=== PATIENT | female | born 1965 | race Caucasian/White ===

== ENCOUNTER 2016-10-17 22:51 | Emergency (ER) | payer SELFPAY ==
--- NOTE | 2016-10-17 23:11 | Emergency Department Record ---
History of Present Illness - General Chief complaint: Female Urogenital Problem Stated complaint: I THINK I HAVE A BLADDER INFECTION Time Seen by Provider: 10/17/16 23:02 Source: Patient Mode of Arrival: Ambulatory Limitations: No limitations - History of Present Illness Initial comments: 51 yo female presents with suprapubic discomfort for 2 days. She has an urgency to urinate more frequently. She reports similar symptoms in the past that have been UTI. No fever. No vomiting. No significant back or flank pain. No history of renal stones or renal surgery. Her pain is suprapubic. She did have a few loose stools yesterday. She has a history of diverticulosis on colonoscopy MD Complaint: Other (Urgency) Onset/Timin -: Days(s) Location: Suprapubic Radiation: Non-radiating Severity: Mild Severity scale (1-10): 6 Quality: Dull Consistency: Constant Improves with: None Worsens with: Movement, Other Associated Symptoms: Denies other symptoms - Related Data Home Medications Medication Instructions Recorded Confirmed Last Taken Levothyroxine Sodium 75 mcg PO DAILY 01/12/14 10/17/16 01/12/14 Hydrocodone/Acetaminophen [[place] 1 tab PO Q6H PRN 10/17/16 10/17/16 10/17/16 5mg/325mg] Previous Rx's Medication Instructions Recorded Ciprofloxacin HCl [Cipro] 500 mg PO Q12HR #14 tablet 10/18/16 Metronidazole [Flagyl] 500 mg PO BID #14 tablet 10/18/16 Allergies Allergy/AdvReac Type Severity Reaction Status Date / Time codeine [CODEINE] Allergy Unknown hyperventil Verified 01/12/14 21:40 ation meperidine [MEPERIDINE] Allergy Unknown hyperventil Verified 01/12/14 21:40 ation Penicillins [PENICILLINS] Allergy Unknown paralysis Verified 01/12/14 21:40 prochlorperazine edisylate Allergy Unknown paralysis Verified 01/12/14 21:40 [From COMPAZINE] prochlorperazine maleate Allergy Unknown paralysis Verified 01/12/14 21:40 [From COMPAZINE] tramadol [From Ultram] Allergy NAUSEA Verified 10/17/16 22:59 Travel Screening - Travel/Exposure Within Last 30 Days Have you traveled within the last 30 days?: No - Travel/Exposure Within Last Year Have you traveled outside the [place] in the last year?: No - Additonal Travel Details Have you been exposed to anyone with a communicable illness?: No - Travel Symptoms Symptom Screening: None Review of Systems Constitutional: Denies: Chills, Fever, Malaise, Weakness Eyes: Denies: Eye discharge ENT: Denies: Congestion, Throat pain Respiratory: Denies: Cough, Dyspnea, Hemoptysis Cardiovascular: Denies: Chest pain, Palpitations, Syncope Endocrine: Denies: Fatigue Gastrointestinal: Reports: As per HPI, Abdominal pain. Denies: Diarrhea, Nausea , Vomiting Genitourinary: Reports: Dysuria, Frequency, Urgency. Denies: Discharge Musculoskeletal: Denies: Arthralgia, Back pain, Neck pain Skin: Denies: Bruising, Change in color Neurological: Denies: Headache Psychiatric: Denies: Anxiety Hematological/Lymphatic: Denies: Blood Clots, Easy bleeding, Easy bruising, Swollen glands Past Medical History - SOCIAL HISTORY Smoking Status: Never smoker Alcohol Use: Rare Drug Use: None - RESPIRATORY Hx Respiratory Disorders: No - CARDIOVASCULAR Hx Cardio Disorders: No - NEURO Hx Neuro Disorders: No - GI Hx GI Disorders: No Hx Abdominal Pain: Yes (recent colonoscopy) - Hx Genitourinary Disorders: No - ENDOCRINE Hx Endocrine Disorders: Yes Hx Thyroid Disease: Yes - MUSCULOSKELETAL Hx Musculoskeletal Disorders: Yes Comment:: DJD - PSYCH Hx Psych Problems: No - HEMATOLOGY/ONCOLOGY Hx Hematology/Oncology Disorders: No Family Medical History Any Significant Family History?: No Hx Cancer: Brother/Sister, Grandparents Physical Exam - General General Appearance: Alert, Oriented x3, Cooperative, No acute distress Limitations: No limitations - Head Head exam: Normal inspection - Eye Eye exam: Normal appearance - ENT ENT exam: Normal exam Ear exam: Normal external inspection Nasal Exam: Normal inspection Mouth exam: Normal external inspection - Neck Neck exam: Normal inspection, Full ROM. negative: Tenderness - Respiratory Respiratory exam: Normal lung sounds bilaterally. negative: Respiratory distress - Cardiovascular Cardiovascular Exam: Regular rate, Normal rhythm, Normal heart sounds - GI/Abdominal GI/Abdominal exam: Soft, Tenderness (mild in the suprapubic area) - Rectal Rectal exam: Deferred - exam: Deferred - Extremities Extremities exam: Normal inspection - Back Back exam: Reports: Normal inspection, Full ROM. Denies: CVA tenderness (R), CVA tenderness (L), Muscle spasm, Rash noted, Tenderness - Neurological Neurological exam: Alert, Normal gait, Oriented X3 - Psychiatric Psychiatric exam: Normal affect, Normal mood. negative: Agitated, Anxious - Skin Skin exam: Dry, Intact, Normal color, Warm Course Vital Signs 10/17/16 23:00 Temperature 99.4 F Pulse Rate 93 H Respiratory 16 Rate Blood Pressure 119/77 Pulse Ox 97 - Reevaluation(s) Reevaluation #1: 10/17/16 23:42 The UA is not conclusive for UTI I recommend labs and CT Reevaluation #2: The CT scan from [facility] was reviewed. The findings are suggestive of diverticulitis. No obstruction, No Free air. Slight stranding. Pulmonary nodule right CVA area. The patient was informed of the results including the nodule to follow up with her PCP for the time appropriate recheck of the nodule 10/18/16 00:53 Because the WBC is 19 I will recommend a recheck in the ED in the next 24 hours and sooner if worse. The patient clinically looks very well. She is eating and drinking. No vomiting or uncontrolled pain. She is a good outpatient candidate 10/18/16 00:58 Medical Decision Making - Lab Data Result diagrams: 10/17/16 23:50 10/17/16 23:50 Disposition Disposition: Discharge Clinical Impression: Diverticulitis Qualifiers: Diverticulitis site: large intestine Diverticulitis bleeding: without bleeding Diverticulitis complication: unspecified complication status Qualified Code(s): K57.32 - Diverticulitis of large intestine without perforation or abscess without bleeding Disposition: Home, Self-Care Condition: (1) Good Instructions: Diverticulitis (ED), Diverticulitis Diet (ED) Additional Instructions: Call your doctor tomorrow for follow up of the ER visit. You will need to review the CT and discuss a recheck of your right sided pulmonary nodule. Return immediately if you have fever, uncontrolled pain or any new conerns Take the antibiotics as directed until gone Prescriptions: Ciprofloxacin HCl [Cipro] 500 mg PO Q12HR #14 tablet Metronidazole [Flagyl] 500 mg PO BID #14 tablet Forms: Patient Portal Access Time of Disposition: 00:57
[2016-10-17 23:19] LABS: URINE APPEARANCE CLEAR; URINE BILIRUBIN NEGATIVE (NEGATIVE); URINE BLOOD TRACE-I (NEGATIVE); URINE COLOR YELLOW; URINE GLUCOSE (UA) NEGATIVE (NEGATIVE); URINE KETONE 40 mg/dL (NEGATIVE); URINE LEUKOCYTE ESTERASE NEGATIVE (NEGATIVE); URINE NITRITE NEGATIVE (NEGATIVE); URINE PROTEIN NEGATIVE (NEGATIVE); URINE UROBILINOGEN 0.2 E.U./dL (0.20 - 1.00)
[2016-10-17 23:34] LABS: URINE MUCUS HEAVY
[2016-10-18 00:14] LABS: ANION GAP 8.6 (7-16); BLOOD UREA NITROGEN 14 mg/dL (7-17); CARBON DIOXIDE 25.4 mmol/L (22-30); EST GLOMERULAR FILTRATION RATE > 60 ml/min; GLUCOSE,RANDOM 113 mg/dL (70-110)
[2016-10-18 00:33] LABS: BASO % 0.1 % (0-6); HEMATOCRIT 47.4 % (35.0-47.0); HEMOGLOBIN 15.6 gm/dl (11.6-16.0); LYMPH % 4.4 % (16-45); MEAN CELL VOLUME 87.6 fl (81-97); MEAN CORPUSCULAR HEMOGLOBIN 28.8 pg (27-33); MEAN CORPUSCULAR HGB CONC 32.9 g/dl (32-36); MEAN PLATELET VOLUME 10.6 fl (7.4-10.4); MONO % 5.2 % (0-9); PLATELET COUNT 224 K/uL (130-400); RED BLOOD COUNT 5.41 M/uL (3.80-5.40); RED CELL DISTRIBUTION WIDTH 13.4 % (11.5-14.5); WHITE BLOOD COUNT W/O DIFF 19.4 K/uL (4.2-12.2)
[2016-10-18] MEDS ORDERED: CIPROFLOXACIN HCL 500 MG TABLET PO ONE (00:55)
[2016-10-18] MEDS ORDERED: METRONIDAZOLE 250 MG TABLET PO ONE (00:55)
--- NOTE | 2016-10-19 13:38 | CT SCAN REPORT ---
EXAM: CT SCAN OF THE ABDOMEN AND PELVIS WITH CONTRAST HISTORY: ABDOMINAL PAIN AND PELVIC PAIN. PREVIOUS HISTORY OF DIVERTICULOSIS. FEVER AND WEAKNESS. TECHNIQUE: Standard CT imaging of the abdomen and pelvis was performed with intravenous contrast. 100 ml of Omnipaque 300 were administered. Comparison: None. FINDINGS: A 5 mm noncalcified nodule is present at the right lung base laterally. The lung bases are otherwise clear. A tiny hiatal hernia is present. There are scattered tiny hypodensities within the liver which are too small to characterize, but suggestive of cysts. The gallbladder, biliary tree, pancreas, and adrenal glands are normal. The spleen is upper normal in size and contains calcified granulomas. A 5 mm nonobstructing stone is present within the mid to upper portion of the left kidney. There is no obstructing calculus or hydronephrosis. Tiny hypodensities within both kidneys are too small to characterize, but suggestive of cysts. The aorta is normal in caliber. There is no retroperitoneal lymphadenopathy. There are a few scattered diverticula within the sigmoid colon. There is abnormal wall thickening of the sigmoid colon with mild adjacent fat stranding. The appearance favors infectious or inflammatory colitis as opposed to acute diverticulitis. The remaining large and small bowel loops are normal. The appendix is normal. There is no pneumoperitoneum or ascites. The uterus and adnexa appear within normal limits. The urinary bladder is normal. There are no acute osseous abnormalities. IMPRESSION: 1. ABNORMAL WALL THICKENING OF THE SIGMOID COLON SUGGESTING INFECTIOUS OR INFLAMMATORY COLITIS. A FEW DIVERTICULA ARE PRESENT WITH NO CONVINCING EVIDENCE OF ACUTE DIVERTICULITIS. 2. 5 MM NONOBSTRUCTING STONE WITHIN THE LEFT KIDNEY. 3. TINY HYPODENSITIES WITHIN THE LIVER AND KIDNEYS WHICH ARE TOO SMALL TO CHARACTERIZE, BUT SUGGESTIVE OF CYSTS. 4. SMALL HIATAL HERNIA. 5. 5 MM NONCALCIFIED NODULE WITHIN THE RIGHT LUNG BASE LATERALLY. A FOLLOW-UP NONEMERGENT CT SCAN OF THE CHEST IS RECOMMENDED FOR BASELINE ASSESSMENT OF BOTH LUNGS. JOB NUMBER: [id number] [facility]
== END 2016-10-18 01:09 | disposition home or self-care (01) ==
LOC: ER 22:51
DX: K57.32 Diverticulitis of large intestine without perforation or abscess without bleeding (principal); R35.0 Frequency of micturition; R10.2 Pelvic and perineal pain
CPT/HCPCS: 99283; 99284; 80048; 81001; 81025; 85027; 74177; Q9967

== ENCOUNTER 2016-10-19 13:39 | Emergency (ER) | payer SELFPAY ==
--- NOTE | 2016-10-19 13:49 | Emergency Department Record ---
History of Present Illness - General Chief Complaint: Abdominal Pain Stated Complaint: ABD PAIN Time Seen by Provider: 10/19/16 13:48 Source: Patient Mode of Arrival: Ambulatory Limitations: No limitations - History of Present Illness Initial Comments: The patient is here due to worsening of her abdomen pain for the last 2 days. She originally was in the ER 2 days ago and due to the AP and was diagnosed with colitis and possibly early Diverticulitis and was discharged on Cipro and Flagyl. She did have an elevated WBC and a CT that demonstrated colon wall thickening with minimal stranding. Now today she is feeling more pain and is bloated. She did see her PCP today who sent her over to the ER for treatment. The patient has had nausea but no vomiting, diarrhea or fever. MD Complaint: Abdominal pain Onset/Timin -: Days(s) Location: LLQ, RLQ Radiation: R flank Severity: Moderate Quality: Aching Consistency: Constant Improves With: Nothing Worsens With: Nothing Associated Symptoms: Diarrhea, Nausea - Related Data Patient : No Home Medications Medication Instructions Recorded Confirmed Last Taken Levothyroxine Sodium 75 mcg PO DAILY 01/12/14 10/19/16 01/12/14 Hydrocodone/Acetaminophen [[place] 1 tab PO Q6H PRN 10/17/16 10/19/16 10/17/16 5mg/325mg] Previous Rx's Medication Instructions Recorded Ciprofloxacin HCl [Cipro] 500 mg PO Q12HR #14 tablet 10/18/16 Metronidazole [Flagyl] 500 mg PO BID #14 tablet 10/18/16 Allergies Allergy/AdvReac Type Severity Reaction Status Date / Time codeine [CODEINE] Allergy Unknown hyperventil Verified 10/19/16 13:43 ation meperidine [MEPERIDINE] Allergy Unknown hyperventil Verified 10/19/16 13:43 ation Penicillins [PENICILLINS] Allergy Unknown paralysis Verified 10/19/16 13:43 prochlorperazine edisylate Allergy Unknown paralysis Verified 10/19/16 13:43 [From COMPAZINE] prochlorperazine maleate Allergy Unknown paralysis Verified 10/19/16 13:43 [From COMPAZINE] tramadol [From Ultram] Allergy NAUSEA Verified 10/19/16 13:43 Travel Screening - Travel/Exposure Within Last 30 Days Have you traveled within the last 30 days?: Yes Location Detail:: [place] - Travel Symptoms Symptom Screening: None Review of Systems Constitutional: Denies: Chills, Fever Eyes: Denies: Eye discharge ENT: Denies: Congestion Respiratory: Denies: Cough, Dyspnea Past Medical History - SOCIAL HISTORY Smoking Status: Never smoker Alcohol Use: None Drug Use: None - RESPIRATORY Hx Respiratory Disorders: No - CARDIOVASCULAR Hx Cardio Disorders: No - NEURO Hx Neuro Disorders: No - GI Hx GI Disorders: No Hx Abdominal Pain: Yes (recent colonoscopy) - Hx Genitourinary Disorders: No - ENDOCRINE Hx Endocrine Disorders: Yes Hx Thyroid Disease: Yes - MUSCULOSKELETAL Hx Musculoskeletal Disorders: Yes Comment:: DJD - PSYCH Hx Psych Problems: No - HEMATOLOGY/ONCOLOGY Hx Hematology/Oncology Disorders: No Family Medical History Any Significant Family History?: Yes Hx Cancer: Brother/Sister, Grandparents Physical Exam - General General Appearance: Alert, Oriented x3, Cooperative, No acute distress - Head Head exam: Atraumatic, Normocephalic, Normal inspection - Eye Eye exam: Normal appearance, PERRL - Neck Neck exam: Normal inspection, Full ROM. negative: Tenderness - Respiratory Respiratory exam: Normal lung sounds bilaterally. negative: Respiratory distress - Cardiovascular Cardiovascular Exam: Regular rate, Normal rhythm, Normal heart sounds - GI/Abdominal GI/Abdominal exam: Guarding, Tenderness (There is diffuse tenderness in all 4 quads increased in the lower quads. There guarding diffusely but no specific rebound.). negative: Soft, Distended, Rebound - Extremities Extremities exam: Normal inspection, Full ROM, Normal capillary refill. negative: Tenderness Course Vital Signs 10/19/16 13:43 Temperature 98.9 F Pulse Rate 77 Respiratory 18 Rate Blood Pressure 129/77 Pulse Ox 98 - Reevaluation(s) Reevaluation #1: The patient is feeling better after the first dose of pain medicines. After reviewing the CT I did order an IV dose of Abx. Due to the perforated viscus on CT I did consult Dr. Hinds and he does accept her to the hospital at [facility] as a direct admission. The patient understands and accepts the plan. 10/19/16 15:05 Medical Decision Making - Lab Data Result diagrams: 10/19/16 14:05 10/19/16 14:05 Disposition Disposition: Transfer Clinical Impression: Perforated abdominal viscus Disposition: Acute Care Hospital Transfer Transfer To: [facility] [facility] Reason For Transfer: perforated viscus Accepting Physician: Lizet Time Discussed w/Accepting Physician: 15:07 Condition: (2) Stable Instructions: Abdominal Pain (ED) Forms: Patient Portal Access Time of Disposition: 15:07
[2016-10-19] MEDS ORDERED: ONDANSETRON HCL IV 4 MG/2 ML VIAL IV ONE (13:53)
[2016-10-19] MEDS ORDERED: HYDROMORPHONE HCL 1 MG/ML CPJ IVP ONE ×2 (13:53→15:04)
[2016-10-19] MEDS ORDERED: 0.9 % SODIUM CHLORIDE 1,000 ML BAG IV ONE (13:53)
[2016-10-19 14:13] LABS: HEMATOCRIT 42.6 % (35.0-47.0); HEMOGLOBIN 14.2 gm/dl (11.6-16.0); MEAN CELL VOLUME 87.8 fl (81-97); MEAN CORPUSCULAR HEMOGLOBIN 29.3 pg (27-33); MEAN CORPUSCULAR HGB CONC 33.3 g/dl (32-36); MEAN PLATELET VOLUME 10.2 fl (7.4-10.4); PLATELET COUNT 186 K/uL (130-400); RED BLOOD COUNT 4.85 M/uL (3.80-5.40); RED CELL DISTRIBUTION WIDTH 13.1 % (11.5-14.5); WHITE BLOOD COUNT W/O DIFF 19.1 K/uL (4.2-12.2)
[2016-10-19 14:25] LABS: ALBUMIN 3.7 gm/dL (3.5-5.0); ANION GAP 7.4 (7-16); BILIRUBIN,TOTAL 1.39 mg/dL (0.2-1.3); CARBON DIOXIDE 25.6 mmol/L (22-30); CREATININE 1.1 mg/dL (0.52-1.04); TOTAL PROTEIN 6.7 gm/dL (6.3-8.2)
[2016-10-19] MEDS ORDERED: ERTAPENEM SODIUM 1 G in 0.9 % SODIUM CHLORIDE 100ML 100 ML IVPB ONE (14:59)
[2016-10-19] MEDS ORDERED: 0.9 % SODIUM CHLORIDE 1000ML 1,000 ML IV PRN (15:12)
--- NOTE | 2016-10-20 16:39 | CT SCAN REPORT ---
EXAM: CT SCAN ABDOMEN/PELVIS WO CONTRAST HISTORY: FIVE DAYS RIGHT LOWER QUADRANT AND LEFT LOWER QUADRANT ABDOMINAL PAIN. TECHNIQUE: Contiguous axial images from the lung bases through the symphysis pubis were obtained without IV contrast. COMPARISON: Abdomen and pelvis CT, 10/18/2016. FINDINGS: Lung bases are clear. There is new moderate free intraperitoneal air suspicious for perforated viscus. The liver is grossly unremarkable. Calcified splenic granulomata. Numerous bilateral nonobstructing intrarenal calculi; largest located in the mid to upper left kidney measuring 6 mm. The adrenals, pancreas, and gallbladder are unremarkable. Small bowel is of normal caliber. There is a loop of small bowel in the right lower quadrant with circumferential wall thickening and edema as well as adjacent haziness consistent with nonspecific enteritis. Moderate fecal material throughout the colon. There is abundant fecal material in the sigmoid colon with abrupt tapering near the distal sigmoid colon best appreciated on axial image #83. This appears similar to the prior day's study. The uterus is present. Inflammatory fat-stranding surrounding the urinary bladder. Trace fluid in the cul-de-sac. No adenopathy. No lytic or blastic lesion. IMPRESSION: 1. NEW MODERATE FREE INTRAPERITONEAL AIR SUSPICIOUS FOR PERFORATED VISCUS. 2. SHORT SEGMENT OF SMALL BOWEL WALL THICKENING IN THE RIGHT LOWER QUADRANT CONSISTENT WITH NONSPECIFIC ENTERITIS. 3. ABUNDANT FECAL MATERIAL IN THE SIGMOID COLON WITH ABRUPT TAPERING NEAR THE DISTAL SIGMOID COLON; ETIOLOGY INDETERMINANT. THIS COULD BE BETTER ASSESSED WITH DIRECT VISUALIZATION CLINICALLY WARRANTED. 4. TRACE ASCITES. 5. BILATERAL NEPHROLITHIASIS. JOB NUMBER: [id number] [facility]
== END 2016-10-19 16:00 | disposition short-term general hospital (02) ==
LOC: ER 13:39
DX: K63.1 Perforation of intestine (nontraumatic) (principal); R19.7 Diarrhea, unspecified; R11.0 Nausea
CPT/HCPCS: 74176; 80048; 80076; 83690; 85027; 86140; 96365; 96375; 96376; 99285; J1170; J2405; J7030

== ENCOUNTER 2017-03-24 08:13 | Day surgery (SDC) | payer OTHER ==
[2017-03-24] MEDS ORDERED: MIDAZOLAM HCL 2MG/2ML VIAL IV ONE (08:14)
[2017-03-24] MEDS ORDERED: HYDROCODONE/APAP 7.5/325MG TABLET PO ONE (08:14)
[2017-03-24] MEDS ORDERED: FENTANYL PF 100MCG/2ML VIAL IV ONE (08:14)
[2017-03-24] MEDS ORDERED: LIDOCAINE 2% MDV (20MG/ML) 20ML VIAL IV ONE (08:14)
[2017-03-24] MEDS ORDERED: DEXAMETHASONE PRESERVATIVE FREE 10MG/ML VIAL IV ONE (08:14)
[2017-03-24] MEDS ORDERED: PROPOFOL 10 MG/ML VIAL IV ONE (08:14)
[2017-03-24] MEDS ORDERED: BUPIVACAINE 0.75% W/EPI MPF 30ML VIAL IVP ONE (08:14)
[2017-03-24] MEDS ORDERED: LIDOCAINE 1% W/EPI 1:200,000 MPF 30ML SQ ONE (08:14)
--- NOTE | 2017-03-24 15:59 | Operative Note - [place] ---
DATE OF SURGERY: 03/24/17 PREOPERATIVE DIAGNOSIS: CERVICAL SPONDYLOSIS WITHOUT MYELOPATHY, ICD-10 CODE = M47.812. OPERATION: FLUOROSCOPICALLY-GUIDED RADIOFREQUENCY RHIZOTOMY BILATERAL CERVICAL FACETS 3-4, 4-5, AND 5-6. SURGEON: ORIANA BOYER D.O. ANESTHESIA: LOCAL SEDATION. ANESTHESIA PROVIDER: RACHEL MADRIGAL CRNA. PRIMARY PHYSICIAN: DR. VARGAS INDICATION: This patient presents with primary neck pain. Examination shows tenderness in the cervical spine. Range of motion causing pain to the neck with extension. Diagnostics show diffuse and extensive spondylosis. A facet series 75 -plus percent pain control. Due to the failure of therapies and the success of the facet series, the patient presents today for rhizotomy for more long-term control. PROCEDURE: Intravenous line, vital sign monitoring, IV sedation, prepped, draped, sterile technique. Under imaging, cervical facet levels in the area of pain were identified and marked at 3-4, 4-5, and 5-6 bilaterally. Each one of these points on the skin infiltrated. A 22-gauge rhizotomy cannula positioned. Stimulation trials conducted. Rhizotomy burn performed. Local with anti- inflammatory into the sites. Topical antibiotics. Sterile dressing applied. We will monitor and evaluate. cc: Dr. Vargas JOB NUMBER: [id number] [facility]
== END 2017-03-24 10:22 | disposition home or self-care (01) ==
LOC: SUR 08:13
PROVIDERS: ATTEND Pain Medicine Interventional Pain Medicine
DX: M47.812 Spondylosis without myelopathy or radiculopathy, cervical region (principal); E03.9 Hypothyroidism, unspecified
CPT/HCPCS: J3490

== ENCOUNTER 2017-11-05 17:21 | Emergency (ER) | payer MEDICAID ==
[2017-11-05] MEDS ORDERED: CLINDAMYCIN 600MG/50ML PREMIX 600 MG/50 ML BAG IVPB ONE (17:49)
[2017-11-05 18:03] LABS: BASO % 0.3 % (0-6); EOS % 0.9 % (0-6); GRAN % 74.9 % (47-80); HEMATOCRIT 45.4 % (35.0-47.0); HEMOGLOBIN 15.5 gm/dl (11.6-16.0); LYMPH % 17.6 % (16-45); MEAN CELL VOLUME 87.8 fl (81-97); MEAN CORPUSCULAR HGB CONC 34.1 g/dl (32-36); MONO % 6.3 % (0-9); PLATELET COUNT 259 K/uL (130-400); RED BLOOD COUNT 5.17 M/uL (3.80-5.40); RED CELL DISTRIBUTION WIDTH 12.7 % (11.5-14.5); WHITE BLOOD COUNT W/O DIFF 10.3 K/uL (4.2-12.2)
[2017-11-05] MEDS ORDERED: CIPROFLOXACIN HCL 500 MG TABLET PO ONE (18:03)
--- NOTE | 2017-11-05 18:04 | Emergency Department Record ---
History of Present Illness - General Chief Complaint: Animal Bite Stated Complaint: RIGHT LOWER LEG CAT BITE Time Seen by Provider: 11/05/17 17:45 Source: Patient Mode of Arrival: Ambulatory Limitations: No limitations - History of Present Illness Initial Comments: The patient is here due to sustaining a cat bit and scratch to the R lower leg 2 days ago. It was her own cat and it's Rabies shots are UTD. The patient also states her Td is not UTD. Now the area is painful and slightly swollen. She denies any other issues or problems. MD Complaint: Animal bite Onset/Timin -: Days(s) Animal: Cat Description: Household pet Mechanism: Bite, Scratch Pain Description: Sharp Severity scale (1-10): 4 Context: Unprovoked, Possible exposure while asleep Treatments Prior to Arrival: Wound dressing(s) - Related Data Patient Tetanus UTD (within 5 yrs): No Home Medications Medication Instructions Recorded Confirmed Last Taken Estradiol/Norethindrone Acet 1 each PO DAILY 11/05/17 11/05/17 1 Day Ago [[place] 1-0.5 mg Tablet] ~11/04/17 Levothyroxine Sodium 125 mcg PO DAILY 11/05/17 11/05/17 1 Day Ago ~11/04/17 Previous Rx's Medication Instructions Recorded Ciprofloxacin HCl [Cipro] 500 mg PO Q12HR #14 tablet 11/05/17 Clindamycin HCl [Cleocin HCl] 300 mg PO QID #28 capsule 11/05/17 Allergies Allergy/AdvReac Type Severity Reaction Status Date / Time codeine [CODEINE] Allergy Unknown hyperventil Verified 11/05/17 17:36 ation meperidine [MEPERIDINE] Allergy Unknown hyperventil Verified 11/05/17 17:36 ation Penicillins [PENICILLINS] Allergy Unknown paralysis Verified 11/05/17 17:36 prochlorperazine edisylate Allergy Unknown paralysis Verified 11/05/17 17:36 [From COMPAZINE] prochlorperazine maleate Allergy Unknown paralysis Verified 11/05/17 17:36 [From COMPAZINE] tramadol [From Ultram] Allergy NAUSEA Verified 11/05/17 17:36 Travel Screening - Travel/Exposure Within Last 30 Days Have you traveled within the last 30 days?: No - Travel/Exposure Within Last Year Have you traveled outside the [place] in the last year?: No - Additonal Travel Details Have you been exposed to anyone with a communicable illness?: No - Travel Symptoms Symptom Screening: None Review of Systems Constitutional: Denies: Chills, Fever Eyes: Denies: Eye discharge ENT: Denies: Congestion Respiratory: Denies: Cough, Dyspnea Past Medical History - SOCIAL HISTORY Smoking Status: Former smoker Alcohol Use: None, Rare Drug Use: None - RESPIRATORY Hx Respiratory Disorders: No - CARDIOVASCULAR Hx Cardio Disorders: No - NEURO Hx Neuro Disorders: No - GI Hx GI Disorders: No Hx Abdominal Pain: No (denies) Hx Diverticulitis: Yes (6-17 ruptured and bowel perf in hosp for 1 wk. no surgery) Hx Reflux: Yes - Hx Genitourinary Disorders: No - ENDOCRINE Hx Endocrine Disorders: Yes Hx Thyroid Disease: Yes - MUSCULOSKELETAL Hx Musculoskeletal Disorders: Yes Hx Arthritis: Yes Comment:: DJD - PSYCH Hx Psych Problems: No - HEMATOLOGY/ONCOLOGY Hx Hematology/Oncology Disorders: No Family Medical History Any Significant Family History?: Yes Hx Cancer: Brother/Sister, Grandparents Physical Exam - General General Appearance: Alert, Oriented x3, Cooperative, No acute distress - Head Head exam: Atraumatic, Normocephalic, Normal inspection - Eye Eye exam: Normal appearance, PERRL - Neck Neck exam: Normal inspection, Full ROM. negative: Tenderness - Respiratory Respiratory exam: Normal lung sounds bilaterally. negative: Respiratory distress - Cardiovascular Cardiovascular Exam: Regular rate, Normal rhythm, Normal heart sounds - Extremities Extremities exam: Normal capillary refill, Tenderness, Other (There is a superficial scratch to the lateral foot but that appears not infected.). negative: Normal inspection (There are 2 PW's to the R lateral lower leg with surrounding erythema and tenderness and warmth. There is no purulence draining from the wounds. ), Calf tenderness Course Vital Signs 11/05/17 17:29 Temperature 98.5 F Pulse Rate 77 Respiratory 18 Rate Blood Pressure 139/62 Pulse Ox 97 - Reevaluation(s) Reevaluation #1: The patient is doing very well. The PW's were anesth. with [place] 1% and minimally explored and no purulence was expressed. The wounds were then cleansed with Hibeclens and dressed. The patient is to return to the ER tomorrow afternoon for recheck. 11/05/17 18:27 Medical Decision Making - Data Complexity MDM Data: Labs Ordered and/or Reviewed - Lab Data Result diagrams: 11/05/17 17:55 11/05/17 17:55 Disposition Disposition: Discharge Clinical Impression: Cat bite Qualifiers: Encounter type: initial encounter Qualified Code(s): W55.01XA - Bitten by cat, initial encounter Disposition: Home, Self-Care Condition: (2) Stable Instructions: Animal Bite (ED) Additional Instructions: Please keep the R leg clean and dry and take the Clindamycin and Cipro. Please return to the ER at 3pm tomorrow for recheck and possible more IV Abx. Prescriptions: Ciprofloxacin HCl [Cipro] 500 mg PO Q12HR #14 tablet Clindamycin HCl [Cleocin HCl] 300 mg PO QID #28 capsule Forms: Patient Portal Access Time of Disposition: 18:30 Quality - Quality Measures Quality Measures: N/A - Blood Pressure Screening View Details: Yes Does Patient Have Any of the Following: No Blood Pressure Classification: Pre-Hypertensive BP Reading Systolic Measurement: 139 Diastolic Measurement: 62 Screening for High Blood Pressure: < Pre-Hypertensive BP, F/U Documented > [ [id number]] Pre-Hypertensive Follow-up Interventions: Referral to alternative/primary care provider.
[2017-11-05] MEDS ORDERED: Diph,Pert(Acell),Tet Vac 0.5 ML SYR IM ONE (18:12)
== END 2017-11-05 18:55 | disposition home or self-care (01) ==
LOC: ER 17:21
DX: S81.831A Puncture wound without foreign body, right lower leg, initial encounter (principal); W55.01XA Bitten by cat, initial encounter; Y92.009 Unspecified place in unspecified non-institutional (private) residence as the place of occurrence of the external cause; Z87.891 Personal history of nicotine dependence; N95.1 Menopausal and female climacteric states
CPT/HCPCS: 76830; 76856; 85025; 90715; 96365; 96372; 99284

== ENCOUNTER 2017-11-06 14:52 | Emergency (ER) | payer MEDICAID ==
[2017-11-06] MEDS ORDERED: CLINDAMYCIN 600MG/50ML PREMIX 600 MG/50 ML BAG IVPB ONE (15:30)
--- NOTE | 2017-11-06 15:35 | Emergency Department Record ---
History of Present Illness - General Chief Complaint: Wound, check Stated Complaint: recheck cat bite Time Seen by Provider: 11/06/17 15:12 Source: Patient Mode of arrival: Ambulatory Limitations: No limitations - History of Present Illness Initial Comments: The patient is here for recheck of a 3 day old cat bite. She was seen yesterday and was started on Clindamycin and Cipro and had her Tetanus updated. She now states the area is feeling and looking better. There is still drainage from one of the PW's but it clearly is feeling better. There is no hx of fever or chills. Complaint: Wound re-check Onset/Timin -: Days(s) Initial Visit For: Animal bite Returns Today for: Wound recheck Symptoms Since Prior Visit: No new symptoms Associated Symptoms: None Treatments Prior to Arrival: Other medications - Related Data Previous Rx's Medication Instructions Recorded Ciprofloxacin HCl [Cipro] 500 mg PO Q12HR #14 tablet 11/05/17 Clindamycin HCl [Cleocin HCl] 300 mg PO QID #28 capsule 11/05/17 Allergies Allergy/AdvReac Type Severity Reaction Status Date / Time codeine [CODEINE] Allergy Unknown hyperventil Verified 11/05/17 17:36 ation meperidine [MEPERIDINE] Allergy Unknown hyperventil Verified 11/05/17 17:36 ation Penicillins [PENICILLINS] Allergy Unknown paralysis Verified 11/05/17 17:36 prochlorperazine edisylate Allergy Unknown paralysis Verified 11/05/17 17:36 [From COMPAZINE] prochlorperazine maleate Allergy Unknown paralysis Verified 11/05/17 17:36 [From COMPAZINE] tramadol [From Ultram] Allergy NAUSEA Verified 11/05/17 17:36 Travel Screening - Travel/Exposure Within Last 30 Days Have you traveled within the last 30 days?: No - Travel/Exposure Within Last Year Have you traveled outside the [place] in the last year?: No - Additonal Travel Details Have you been exposed to anyone with a communicable illness?: No - Travel Symptoms Symptom Screening: None Review of Systems Constitutional: Denies: Chills, Fever Past Medical History - SOCIAL HISTORY Smoking Status: Former smoker Alcohol Use: None Drug Use: None - RESPIRATORY Hx Respiratory Disorders: No - CARDIOVASCULAR Hx Cardio Disorders: No - NEURO Hx Neuro Disorders: No - GI Hx GI Disorders: No Hx Abdominal Pain: No (denies) Hx Diverticulitis: Yes (6-17 ruptured and bowel perf in hosp for 1 wk. no surgery) Hx Reflux: Yes - Hx Genitourinary Disorders: No - ENDOCRINE Hx Endocrine Disorders: Yes Hx Thyroid Disease: Yes - MUSCULOSKELETAL Hx Musculoskeletal Disorders: Yes Hx Arthritis: Yes Comment:: DJD - PSYCH Hx Psych Problems: No - HEMATOLOGY/ONCOLOGY Hx Hematology/Oncology Disorders: No Family Medical History Any Significant Family History?: Yes Hx Cancer: Brother/Sister, Grandparents Physical Exam - General General Appearance: Alert, Oriented x3, Cooperative, No acute distress - Head Head exam: Atraumatic, Normocephalic, Normal inspection - Eye Eye exam: Normal appearance, PERRL - Extremities Extremities exam: Full ROM, Tenderness. negative: Normal inspection (The R lower leg infection appears improved. The redness and tenderness have clearly receded. The area around the PW's is much less painful.) Course Vital Signs 11/06/17 15:26 Temperature 98.2 F Pulse Rate 63 Respiratory 17 Rate Blood Pressure 129/78 Pulse Ox 96 - Reevaluation(s) Reevaluation #1: I did discuss with the patient the fact that since the infection is clearly improving we must be on the right track with the Abx's. She is to continue the oral Abx's and dressings and see her family doctor in 2 days for recheck. She is to return to the ER for any worsening symptoms. 11/06/17 15:32 Disposition Disposition: Discharge Clinical Impression: Cat bite Qualifiers: Encounter type: sequela Qualified Code(s): W55.01XS - Bitten by cat, sequela Disposition: Home, Self-Care Condition: (2) Stable Instructions: Wound Infection (ED) Additional Instructions: Please continue the oral antibiotics and dressing changes. Please see your family doctor in 2 days for recheck and return to the ER for any worsening symptoms. Time of Disposition: 15:34 Quality - Quality Measures Quality Measures: N/A - Blood Pressure Screening View Details: Yes Does Patient Have Any of the Following: No Blood Pressure Classification: Pre-Hypertensive BP Reading Systolic Measurement: 129 Diastolic Measurement: 78 Screening for High Blood Pressure: < Pre-Hypertensive BP, F/U Documented > [ [id number]] Pre-Hypertensive Follow-up Interventions: Referral to alternative/primary care provider.
== END 2017-11-06 16:24 | disposition home or self-care (01) ==
LOC: ER 14:52
DX: S81.831A Puncture wound without foreign body, right lower leg, initial encounter (principal); W55.01XA Bitten by cat, initial encounter; Y92.009 Unspecified place in unspecified non-institutional (private) residence as the place of occurrence of the external cause
CPT/HCPCS: 99282